=== PATIENT | female | born 1990 | race Caucasian/White ===

== ENCOUNTER 2020-08-12 11:17 | Outpatient (REF) | payer MEDICAID, SELFPAY | END 2020-08-12 11:18 | disposition home or self-care (01) | LOC: HO.LAB 11:17 | PROVIDERS: Visit Provider Internal Medicine | DX: Z20.822 Contact with and (suspected) exposure to COVID-19 (principal) | CPT/HCPCS: 36415; C9803; U0003; U0005 ==

== ENCOUNTER 2021-04-06 09:42 | Outpatient (REF) | payer MEDICAID, SELFPAY | END 2021-04-06 09:43 | disposition home or self-care (01) | LOC: HO.LAB 09:42 | PROVIDERS: Visit Provider Internal Medicine | DX: Z20.822 Contact with and (suspected) exposure to COVID-19 (principal) | CPT/HCPCS: C9803; U0003; U0005 ==

== ENCOUNTER 2021-10-27 16:31 | Emergency (ER) | payer MEDICAID, SELFPAY ==
--- NOTE | ~2021-10-27 | CT_ITS ---
EXAMINATION: CT SOFT TISSUE NECK WITH CONTRAST CLINICAL INFORMATION: Sore throat rule out abscess COMPARISON: None TECHNIQUE: Following the intravenous administration of 6 mL of Omnipaque 350 intravenous contrast, helical imaging was performed in the axial plane with generation of coronal and sagittal reformatted images. This CT examination was performed using dose optimization techniques as appropriate, variously including the following: *Automated exposure control *Adjustment of mA and/or kV according to patient size (this includes techniques or standardized protocols for targeted exams where dose is matched to indication/reason for exam; i.e. extremities or head) *Use of iterative reconstruction technique DLP: 478 mGy-cm FINDINGS: There is marked cervical adenopathy is identified with lymph nodes measured more than 2 cm long. The parotid glands are homogeneous in attenuation. The submandibular glands are normal. No contour abnormality or pathologic enhancement is seen within the oral cavity or pharyngeal mucosal space. The laryngeal structures are deviated to the left by soft tissue prominence at the right tonsillar area. The parapharyngeal fat is obliterated. The carotid sheath vasculature opacify normally. There there bilateral peritonsillar abscesses right measured 1.5 x 1.4 x 2.4 cm and left significantly smaller and difficult to measure, in sagittal direction measured 0.9 cm. No retropharyngeal fluid collection is seen. The thyroid gland is normal. The superior mediastinum is unremarkable. The lung apices are clear. The mastoid air cells and visualized portions of the paranasal sinuses are well-aerated. The temporomandibular joints are normal. No periapical disease is identified. No osseous abnormalities are seen. The imaged portions of the brain parenchyma are unremarkable. CT/CT soft tissue neck w con IMPRESSION: Bilateral, right more than left paratonsillar abscess is is deviation of the larynx to the left and massive neck lymphadenopathy
[2021-10-27 16:37] VITALS: BP 121/76; PULSE 99; O2SAT 98
[2021-10-27 17:59] VITALS: BP 133/89; PULSE 100; RESP 20; TEMP 38.3; O2SAT 99; BMI 27.4
--- NOTE | 2021-10-27 18:08 | ED_ITS ---
HPI - General Adult General Chief complaint: General Medical Stated complaint: SORE THROAT Time Seen by Provider: 10/27/21 18:06 Source: patient Mode of arrival: EMS Limitations: no limitations History of Present Illness HPI narrative: This is a 31-year-old female no significant medical history presenting to the emergency department with sore throat, shortness of breath, difficulty swallowing, difficulty controlling secretions x3 days progressively worsening. Patient speaking in short sentences in telling me that she had had a sore throat like this for a while. She tells me that last time she had a sore throat like this she was hospitalized with IV antibiotics. She also reports associated neck pain. Patient tells me she has been having subjective fevers and chills. She has not been eating or drinking much over the past 3 days. No known sick contacts. She denies nausea, vomiting, chest pain, abdominal pain, vision changes. Onset (ago): day(s) (3) Location: mouth (Throat ) Radiation: non-radiation Severity: severe Severity scale (1-10): 10 Quality: burning Pain Consistency: constant Relieving factors: none Exacerbating factors: other (swallowing, eating ) Associated symptoms: denies other symptoms Treatments prior to arrival: none Related Data Allergies Allergy/AdvReac Type Severity Reaction Status Date / Time No Known Allergies Allergy Unverified 07/25/21 14:47 Review of Systems Review of Systems: Constitutional : No Weight loss, + Fever, + Chills, No Fatigue, No Malaise ENT/Mouth : + sore throat, No Rhinorrhea Eyes: No Eye Pain, No Swelling, No Redness Cardiovascular : No Chest Pain, No SOB, No Dyspnea on Exertion, No Orthopnea, No Edema, No Palpitations Respiratory : No Cough, No Sputum, No Wheezing Gastrointestinal : No Nausea, No Vomiting, No Diarrhea, No Constipation, No abdominal Pain, No Hematochezia, No Melena Genitourinary : No Dysuria, No Urinary Frequency, No Hematuria, Musculoskeletal : No joint pain, No Myalgias, No Joint Swelling Skin : No Skin Lesions, No rash Neuro : No Weakness, No Numbness, No Dizziness, No Headache Psych : No Anxiety/Panic, No Depression All other systems reviewed and are negative Yes all other systems are reviewed and are negative PMFSH Past Medical History Attestation statement: The following information was validated with the patient. Source: old records reviewed and nursing notes reviewed Social History Social History Advance Directives: No Advance Directives Information Provided: No Patient : No Physical Exam ED Vital Signs: Vital Signs - 24 hr 10/27/21 17:59 10/27/21 18:31 10/27/21 21:09 Temperature 101 F H 99.7 F 98.4 F Pulse Rate 100 102 H 96 Respiratory Rate 20 21 H 16 Blood Pressure 133/89 119/70 122/79 Pulse Oximetry 99 97 97 BMI result Body Mass Index 27.4 Patient noted to be febrile. And tachycardic. Appearance: Alert.? Oriented X3.? No acute distress.?+ Patient speaking with muffled voice. Trouble controlling secretions. Head: Normocephalic, atraumatic, no step-offs or deformities Eyes: Pupils equal, round and reactive to light.? ENT: + Bilateral tonsils extremely erythematous, edematous without exudate, difficult to visualize the posterior pharynx. Bulls neck Neck: Normal inspection.? Neck supple.? CVS: Normal heart rate and rhythm.? Pulses normal.? Respiratory: No respiratory distress.? Breath sounds normal.? Abdomen: Soft and nontender.? Skin: Skin warm and dry.? Normal skin color.? Normal skin turgor.? Extremities: No lower extremity edema.? No calf ttp. 5/5 strength to bilateral upper and lower extremities Back: No midline tenderness, no C-spine tenderness, full range of motion, no CVA tenderness bilaterally Neuro: Oriented X 3.? No motor deficit.? No sensory deficit. CN 2-12 intact Course Reevaluation(s) Reevaluation #1: Patient noted to have a leukocytosis, consistent with pharyngitis. No acute electrolyte abnormalities. CT shows bilateral right more Than left peritonsillar abscess with deviation of the larynx to the left and massive neck lymphadenopathy. Patient continues to spit up her saliva however she saturating well on room air. As we do not have ENT patient will require higher level of care. Will call [facility] for transfer. Time: 21:08 Reevaluation #2: ENT at [facility] will not take transfer at this time will try ED. Time: 21:23 Reevaluation #3: Patient will be transfered to [facility] ED to service of . Time: 21:26 Medical Decision Making MDM Narrative Medical decision making narrative: 180 31 yo f presents w/ sore throat prog worsening X2 days. Reports difficulty with swallowing. Has had a hard time eating and drinking lately. Upon physical examination patient has extremely erythematous and edematous bilateral tonsils, difficult to visualize posterior pharynx. Mallampati score of 3 or 4. Patient having issues controlling secretions, speaking with a muffled voice. Regular rate fast rhythm likely sinus tachycardia. Lungs clear. Abdomen soft nontender nondistended. Neuro nonfocal. Patient is tachycardic and febrile however likely secondary to strep throat. I do not suspect sepsis at this time. Likely pharyngitis. Will rule out peritonsillar abscess. At this time patient will be given dexamethasone and clindamycin as well as Tylenol as she is febrile. I will obtain blood cultures and a lactic as well. Medical Records Medical records reviewed: Yes I reviewed the patient's medical records. Lab Data Lab results reviewed: Yes I reviewed the patient's lab results. Result diagrams: 10/27/21 18:29 10/27/21 18:54 Labs: Lab Results 10/27/21 10/27/21 10/27/21 Range/Units 18:29 18:29 18:33 WBC 14.6 H (4.8-10.8) X10*3/uL RBC 4.03 L (4.20-5.50) X10*6/uL Hgb 10.7 L (12.0-16.0) g/dl Hct 32.4 L (37.0-47.0) % MCV 80.4 (80.0-98.0) fL MCH 26.6 L (27.0-33.0) pg MCHC 33.0 (31.0-35.0) g/dl RDW 14.9 (11.0-16.0) % Plt Count 380 (160-400) X10*3/uL MPV 11.0 (9.4-12.3) fL Immature Gran % (Auto) 0.5 H (0.0-0.4) % Neut % (Auto) 75.8 H (45-73) % Lymph % (Auto) 16.2 L (20-40) % [place] % (Auto) 6.8 (2-11) % Eos % (Auto) 0.5 (0-4) % Baso % (Auto) 0.2 (0-2) % Lymph # (Auto) 2.4 (1.2-4.9) X10*3/uL [place] # (Auto) 1.0 (0.1-1.2) X10*3/uL Eos # (Auto) 0.1 (0.0-0.4) X10*3/uL Baso # (Auto) 0.0 (0.0-0.2) X10*3/uL Abs Immat Gran (auto) 0.08 H (0.00-0.03) X10*3/uL Absolute Neuts (auto) 11.1 H (2.0-8.3) x10*3/uL Absolute Nucleated RBC 0.000 (0.0-0.012) X10*3/uL Nucleated RBC % (auto) 0.0 (0.0-0.2) /100WBC Sodium (135-145) mmol/L Potassium (3.3-5.1) mmol/L Chloride (96-108) mmol/L Carbon Dioxide (22-29) mmol/L Anion Gap (12-20) BUN (9-16) mg/dL Creatinine (0.5-1.4) mg/dL Estim Creat Clear Calc Estimated GFR Random Glucose (60-115) mg/dL Lactic Acid 0.9 (0.5-2.0) mmol/L Calcium (8.4-10.2) mg/dL Total Bilirubin (0.0-1.0) mg/dL AST (5-31) U/L ALT (0-31) U/L Alkaline Phosphatase (39-117) U/L Total Protein (6.5-8.0) g/dL Albumin (3.5-5.0) g/dL COVID-19 (MP) Negative (Negative) COVID-19 Clin Com See Note Influenza Type A (CARLO) (Negative) Influenza Type B (CARLO) (Negative) Influenza A & B Note S. pyogenes GrpA CARLO (Negative) 10/27/21 10/27/21 10/27/21 Range/Units 18:54 18:55 19:54 WBC (4.8-10.8) X10*3/uL RBC (4.20-5.50) X10*6/uL Hgb (12.0-16.0) g/dl Hct (37.0-47.0) % MCV (80.0-98.0) fL MCH (27.0-33.0) pg MCHC (31.0-35.0) g/dl RDW (11.0-16.0) % Plt Count (160-400) X10*3/uL MPV (9.4-12.3) fL Immature Gran % (Auto) (0.0-0.4) % Neut % (Auto) (45-73) % Lymph % (Auto) (20-40) % [place] % (Auto) (2-11) % Eos % (Auto) (0-4) % Baso % (Auto) (0-2) % Lymph # (Auto) (1.2-4.9) X10*3/uL [place] # (Auto) (0.1-1.2) X10*3/uL Eos # (Auto) (0.0-0.4) X10*3/uL Baso # (Auto) (0.0-0.2) X10*3/uL Abs Immat Gran (auto) (0.00-0.03) X10*3/uL Absolute Neuts (auto) (2.0-8.3) x10*3/uL Absolute Nucleated RBC (0.0-0.012) X10*3/uL Nucleated RBC % (auto) (0.0-0.2) /100WBC Sodium 138 (135-145) mmol/L Potassium 3.5 (3.3-5.1) mmol/L Chloride 103 (96-108) mmol/L Carbon Dioxide 25 (22-29) mmol/L Anion Gap 14 (12-20) BUN 11 (9-16) mg/dL Creatinine 0.72 (0.5-1.4) mg/dL Estim Creat Clear Calc 103.3 Estimated GFR > 60 Random Glucose 95 (60-115) mg/dL Lactic Acid (0.5-2.0) mmol/L Calcium 8.9 (8.4-10.2) mg/dL Total Bilirubin 0.6 (0.0-1.0) mg/dL AST 15 (5-31) U/L ALT 12 (0-31) U/L Alkaline Phosphatase 87 (39-117) U/L Total Protein 7.8 (6.5-8.0) g/dL Albumin 3.9 (3.5-5.0) g/dL COVID-19 (MP) (Negative) COVID-19 Clin Com Influenza Type A (CARLO) Negative (Negative) Influenza Type B (CARLO) Negative (Negative) Influenza A & B Note See Note S. pyogenes GrpA CARLO Negative (Negative) Critical Care Time Critical Care Time Critical Care Time: No Discharge Plan Discharge Clinical Impression: Peritonsillar abscess, Shortness of breath, Sore throat, Fever Patient Disposition: [facility] Transfer Details: Transfer to [facility] ED Dr. Soler
[2021-10-27 18:31] VITALS: BP 119/70; PULSE 102; RESP 21; TEMP 37.6; O2SAT 97
[2021-10-27 18:35] LABS: MANUAL DIFF FLAG NO
[2021-10-27 18:50] LABS: Basophils Percent Auto 0.2 % (0-2); Eosinophils Absolute Auto 0.1 X10*3/uL (0.0-0.4); Eosinophils Percent Auto 0.5 % (0-4); Hematocrit 32.4 % (37.0-47.0); Hemoglobin 10.7 g/dl (12.0-16.0); Imm Gran Abs Auto 0.08 X10*3/uL (0.00-0.03); Imm Gran Pct Auto 0.5 % (0.0-0.4); Lymphocytes Absolute Auto 2.4 X10*3/uL (1.2-4.9); Lymphocytes Percent Auto 16.2 % (20-40); Mean Corpuscular Hemoglobin 26.6 pg (27.0-33.0); Mean Corpuscular Volume 80.4 fL (80.0-98.0); Monocytes Percent Auto 6.8 % (2-11); Neutrophils Absolute Auto 11.1 x10*3/uL (2.0-8.3); Neutrophils Percent Auto 75.8 % (45-73); Platelet Count 380 X10*3/uL (160-400); Red Blood Count 4.03 X10*6/uL (4.20-5.50); Red Cell Distribution Width 14.9 % (11.0-16.0); White Blood Count 14.6 X10*3/uL (4.8-10.8)
[2021-10-27 18:52] LABS: Lactic Acid 0.9 mmol/L (0.5-2.0)
[2021-10-27 18:53] LABS: COVID-19 Test Negative (Negative)
[2021-10-27 19:17] LABS: IDNOW Serial# 16C4AD1C; Influenza A Negative (Negative); Influenza B2 Negative (Negative)
[2021-10-27 19:20] LABS: Alanine Aminotransferase 12 U/L (0-31); Albumin Level 3.9 g/dL (3.5-5.0); Alkaline Phosphatase 87 U/L (39-117); Anion Gap 14 (12-20); Aspartate Amino Transferase 15 U/L (5-31); Bilirubin Total 0.6 mg/dL (0.0-1.0); Blood Urea Nitrogen 11 mg/dL (9-16); Calcium 8.9 mg/dL (8.4-10.2); Carbon Dioxide 25 mmol/L (22-29); Chloride 103 mmol/L (96-108); Creatinine Clr Calc Pharmacy 103.3; Estimated Glomerular Filt Rate > 60; Glucose Random 95 mg/dL (60-115); Potassium 3.5 mmol/L (3.3-5.1); Sodium 138 mmol/L (135-145); Total Protein 7.8 g/dL (6.5-8.0)
[2021-10-27] MEDS: Clindamycin Phosphate/D5W 600 MG/50 ML PIGGYBACK 100 MG IV (19:59)
[2021-10-27] MEDS: 0.9 % Sodium Chloride 1,000 ML 999 ML IV (19:59)
[2021-10-27] MEDS: dexAMETHasone sod phosphate 10 MG/ML VIAL IVPUSH (20:00)
[2021-10-27] MEDS: Acetaminophen 325 MG TABLET 975 MG PO (20:00)
[2021-10-27 20:06] LABS: Strep A Nucleic Acid Negative (Negative)
[2021-10-27] MEDS: iohexoL 350 MG/ML 100 ML INFUS..BTL IV (20:42)
--- NOTE | 2021-10-27 21:07 | PC.NURSE ---
call out to [facility] transfer line @ [phone]
[2021-10-27 21:09] VITALS: BP 122/79; PULSE 96; RESP 16; TEMP 36.9; O2SAT 97
[2021-10-27 22:06] LABS: Monotest Negative (Negative)
== END 2021-10-27 21:45 | disposition short-term general hospital (02) ==
PROVIDERS: Physician Assistant; Emergency Provider Internal Medicine
DX: J36 Peritonsillar abscess (principal); J02.9 Acute pharyngitis, unspecified; R50.9 Fever, unspecified; R06.02 Shortness of breath; Z20.822 Contact with and (suspected) exposure to COVID-19
CPT/HCPCS: 36415; 70491; 80053; 83605; 85025; 86308; 87040; 87502; 87635; 87651; 96361; 96365; 96375; 99285; J1100; Q9967

== ENCOUNTER 2023-03-14 12:20 | Emergency (ER) | payer MEDICAID, SELFPAY ==
--- NOTE | ~2023-03-14 | CT_ITS ---
EXAMINATION: CT HEAD WITHOUT CONTRAST CLINICAL INFORMATION: Fall, head trauma COMPARISON: None available. TECHNIQUE: Contiguous axial imaging was performed from the skull base to vertex without intravenous administration of contrast. This CT examination was performed using dose optimization techniques as appropriate, variously including the following: *Automated exposure control *Adjustment of mA and/or kV according to patient size (this includes techniques or standardized protocols for targeted exams where dose is matched to indication/reason for exam; i.e. extremities or head) *Use of iterative reconstruction technique DLP: 547 mGy-cm FINDINGS: The ventricles and sulci are normal in size and configuration. No acute hemorrhage, mass effect or shift is evident. Beckman-white differentiation is maintained. In the posterior fossa, the brainstem, cerebellum and fourth ventricle image normally. The orbits and calvarium are intact. The paranasal sinuses and mastoid air cells are well pneumatized and clear. CT/CT head/brain wo IV con IMPRESSION: 1. Unremarkable noncontrast brain CT. No acute hemorrhage, mass effect or shift.
--- NOTE | ~2023-03-14 | XR_ITS ---
EXAMINATION: XR SHOULDER, LEFT CLINICAL INFORMATION: Shoulder pain, fall COMPARISON: None available. TECHNIQUE: AP external rotation, Grashey, scapular Y, views of the left shoulder. FINDINGS: The bones and soft tissues are normal. No fracture. Glenohumeral and acromioclavicular alignment is anatomic with normal joint space. No abnormal soft tissue calcifications. XR/XR shoulder LT min 2V IMPRESSION: Normal left shoulder.
[2023-03-14 12:31] VITALS: BP 137/85; PULSE 73; RESP 16; TEMP 36.8; O2SAT 98; BMI 27.0
--- NOTE | 2023-03-14 12:33 | ECG_ITS ---
Test Reason : pain Blood Pressure : / mmHG Vent. Rate : 060 BPM Atrial Rate : 060 BPM P-R Int : 168 ms QRS Dur : 076 ms QT Int : 392 ms P-R-T Axes : 045 054 041 degrees QTc Int : 392 ms Normal sinus rhythm with sinus arrhythmia Normal ECG When compared with ECG of 16-DEC-2011 23:01, No significant change was found Referred By: Deniz Newberry Electronically Signed By:CHIQUITA NORTON
--- NOTE | 2023-03-14 12:34 | ED_ITS ---
HPI - General Adult General Chief complaint: Seizure Stated complaint: Seizure Sent By [facility] Time Seen by Provider: 03/14/23 14:02 Source: patient Mode of arrival: ambulatory Limitations: no limitations History of Present Illness HPI narrative: Patientwith history of epilepsy since age 16 never been treated, had EEG at that time which was nondiagnostic but never followed up with any neurologist after that patient has been having seizures off and on last seizure was 6 years ago the last night around midnight patient was in the kitchen felt funny and next thing was noted that she was on the ground her 8 year son watched the seizure patient was confused complaining of pain in the left scapular area. No history of sleep deprivation no intake of Wellbutrin or tramadol or any drugs no current head injury Related Data Previous Rx's Medication Instructions Recorded levetiracetam 500 mg tablet 500 mg PO BID #180 tabs 03/14/23 (Keppra) Allergies Allergy/AdvReac Type Severity Reaction Status Date / Time No Known Allergies Allergy Unverified 03/14/23 12:35 Review of Systems 2 Review of Systems: Yes all other systems are reviewed and are negative [facility] Social History Social History Alcohol intake: never Smoked in Last 30 Days: No Use of substances other than those prescribed or required for medical reasons: No Advance Directives: No Physical Exam ED Vital Signs: Vital Signs - 24 hr 03/14/23 12:31 Temperature 98.3 F Pulse Rate 73 Respiratory Rate 16 Blood Pressure 137/85 Pulse Oximetry 98 Oxygen Delivery Method Room Air BMI result Body Mass Index 27.0 Appearance: Alert. Oriented X3. No acute distress. Eyes: PERRLA, No Nystagmus ENT: Pharynx normal. Oral Mucosa moist no tongue bite Neck: Normal inspection. Neck supple. CVS: Normal heart rate and rhythm. Pulses normal. Respiratory: No respiratory distress. Equal air entry bilateral, no wheezing/rales/rhonchi Abdomen: Soft and nontender. Bowel sounds are present, no mass palpable, no CVA tenderness Skin: Skin warm and dry. Normal skin color. Normal skin turgor. Extremities: No lower extremity edema. No calf tenderness soft tissue tenderness left scapular area good range of left shoulder Neuro: Oriented X 3. No motor deficit. No sensory deficit.No cerebellar signs , cranial nerves II-XII intact Course Course Course Narrative: RME- 32 year old female presents for evaluation of a seizure. She reports an unwitnessed seizure last night around midnight. She reports she was standing in the bathroom and she remembers waking up on the floor. She reports feeling weak with a headache currently. No neuro deficits. She reports history of seizures with the most recent being 6 months ago. She is not on any antiepileptic medications. Plan for labs and a head CT Medications Administered Discontinued Medications Generic Name Dose Route Start Last Admin Trade Name Freq PRN Reason Stop Dose Admin Levetiracetam 500 mg 03/14/23 14:36 03/14/23 14:51 Levetiracetam 500 Mg Tablet PO 03/14/23 14:37 500 mg ONCE ONE Administration Medical Decision Making Medical Decision Making [facility] Narrative: Patient with history of epilepsy with aura and post ictal confusion will start patient on Keppra advised to follow with neurologist Differential Diagnosis Differential Diagnoses: The differential diagnosis associated with the presentation includes Pseudo epilepsy/epilepsy Lab Data [facility] Lab Attestation statement: I reviewed the patient's lab results. 03/14/23 12:40 03/14/23 12:40 Labs: Lab Results 03/14/23 Range/Units 12:40 WBC 6.3 (4.8-10.8) X10*3/uL RBC 3.93 L (4.20-5.50) X10*6/uL Hgb 11.5 L (12.0-16.0) g/dl Hct 34.7 L (37.0-47.0) % MCV 88.3 (80.0-98.0) fL MCH 29.3 (27.0-33.0) pg MCHC 33.1 (31.0-35.0) g/dl RDW 13.8 (11.0-16.0) % Plt Count 322 (160-400) X10*3/uL MPV 10.3 (9.4-12.3) fL Immature Gran % (Auto) 0.3 (0.0-0.4) % Neut % (Auto) 61.0 (45-73) % Lymph % (Auto) 29.5 (20-40) % [place] % (Auto) 7.8 (2-11) % Eos % (Auto) 1.1 (0-4) % Baso % (Auto) 0.3 (0-2) % Lymph # (Auto) 1.9 (1.2-4.9) X10*3/uL [place] # (Auto) 0.5 (0.1-1.2) X10*3/uL Eos # (Auto) 0.1 (0.0-0.4) X10*3/uL Baso # (Auto) 0.0 (0.0-0.2) X10*3/uL Abs Immat Gran (auto) 0.02 (0.00-0.03) X10*3/uL Absolute Neuts (auto) 3.8 (2.0-8.3) x10*3/uL Absolute Nucleated RBC 0.000 (0.0-0.012) X10*3/uL Nucleated RBC % (auto) 0.0 (0.0-0.2) /100WBC Sodium 139 (135-145) mmol/L Potassium 4.3 D (3.3-5.1) mmol/L Chloride 110 H (96-108) mmol/L Carbon Dioxide 23 (22-29) mmol/L Anion Gap 10 L (12-20) BUN 10 (9-16) mg/dL Creatinine 0.69 (0.5-1.4) mg/dL Estim Creat Clear Calc 106.0 Estimated GFR > 60 Random Glucose 97 (60-115) mg/dL Lactic Acid 0.8 (0.5-2.0) mmol/L Calcium 9.0 (8.4-10.2) mg/dL Magnesium 2.2 (1.6-2.6) mg/dL Total Bilirubin 0.2 (0.0-1.0) mg/dL AST 18 (5-31) U/L ALT 10 (0-31) U/L Alkaline Phosphatase 67 (39-117) U/L Total Creatine Kinase 125 (26-140) U/L Total Protein 7.7 (6.5-8.0) g/dL Albumin 3.9 (3.5-5.0) g/dL Lipase 19 (8-78) U/L Radiology Impression Discussion of test interpretation with radiology: I have reviewed the radiologist's reading. Radiologist Impression: Negative head CT Discharge Plan Discharge Clinical Impression: Epileptic seizure Patient Disposition: Home, Self-Care Instructions: Epilepsy (ED) Additional Instructions: Care and cautions as advised Start taking seizure medication as prescribed Follow-up with neurologist for further evaluation Prescriptions: New levetiracetam [Keppra] 500 mg tablet 500 mg PO BID Qty: 180 2RF Referrals: Xavi Caceres MD [Physician] - 2 weeks Stand Alone Forms: Work/School Release
[2023-03-14 12:53] LABS: MANUAL DIFF FLAG NO
[2023-03-14 12:58] LABS: Basophils Percent Auto 0.3 % (0-2); Eosinophils Absolute Auto 0.1 X10*3/uL (0.0-0.4); Eosinophils Percent Auto 1.1 % (0-4); Hematocrit 34.7 % (37.0-47.0); Hemoglobin 11.5 g/dl (12.0-16.0); Imm Gran Abs Auto 0.02 X10*3/uL (0.00-0.03); Imm Gran Pct Auto 0.3 % (0.0-0.4); Lymphocytes Absolute Auto 1.9 X10*3/uL (1.2-4.9); Lymphocytes Percent Auto 29.5 % (20-40); Mean Corpuscular HGB Conc 33.1 g/dl (31.0-35.0); Mean Corpuscular Hemoglobin 29.3 pg (27.0-33.0); Mean Corpuscular Volume 88.3 fL (80.0-98.0); Mean Platelet Volume 10.3 fL (9.4-12.3); Monocytes Absolute Auto 0.5 X10*3/uL (0.1-1.2); Monocytes Percent Auto 7.8 % (2-11); Neutrophils Absolute Auto 3.8 x10*3/uL (2.0-8.3); Platelet Count 322 X10*3/uL (160-400); Red Blood Count 3.93 X10*6/uL (4.20-5.50); Red Cell Distribution Width 13.8 % (11.0-16.0); White Blood Count 6.3 X10*3/uL (4.8-10.8)
[2023-03-14 13:04] LABS: Lactic Acid 0.8 mmol/L (0.5-2.0)
[2023-03-14 13:11] LABS: Alanine Aminotransferase 10 U/L (0-31); Albumin Level 3.9 g/dL (3.5-5.0); Alkaline Phosphatase 67 U/L (39-117); Anion Gap 10 (12-20); Aspartate Amino Transferase 18 U/L (5-31); Bilirubin Total 0.2 mg/dL (0.0-1.0); Blood Urea Nitrogen 10 mg/dL (9-16); Carbon Dioxide 23 mmol/L (22-29); Chloride 110 mmol/L (96-108); Estimated Glomerular Filt Rate > 60; Glucose Random 97 mg/dL (60-115); Lipase 19 U/L (8-78); Magnesium 2.2 mg/dL (1.6-2.6); Potassium 4.3 mmol/L (3.3-5.1); Sodium 139 mmol/L (135-145); Total Protein 7.7 g/dL (6.5-8.0)
[2023-03-14] MEDS: levETIRAcetam 500 MG TABLET PO (14:51)
== END 2023-03-14 15:15 | disposition home or self-care (01) ==
PROVIDERS: Physician Assistant; Emergency Provider Internal Medicine
DX: G40.909 Epilepsy, unspecified, not intractable, without status epilepticus (principal); M25.512 Pain in left shoulder; R07.89 Other chest pain; Z79.899 Other long term (current) drug therapy
CPT/HCPCS: 36415; 70450; 73030; 80053; 82550; 83605; 83690; 83735; 85025; 93005; 99284

== ENCOUNTER 2023-04-10 09:21 | Outpatient (REF) | payer MEDICAID, SELFPAY | END 2023-04-10 09:22 | disposition home or self-care (01) | LOC: HO.LAB 09:21 | PROVIDERS: Visit Provider Psychiatry & Neurology Neurology | DX: D64.9 Anemia, unspecified (principal) | CPT/HCPCS: 36415; 83540 ==

== ENCOUNTER 2023-07-13 09:38 | Outpatient (REF) | payer MEDICAID, SELFPAY ==
[2023-07-13 11:47] LABS: MANUAL DIFF FLAG NO
[2023-07-13 12:02] LABS: Basophils Percent Auto 0.7 % (0-2); Eosinophils Absolute Auto 0.1 X10*3/uL (0.0-0.4); Eosinophils Percent Auto 1.1 % (0-4); Hematocrit 34.6 % (37.0-47.0); Hemoglobin 11.4 g/dl (12.0-16.0); Imm Gran Abs Auto 0.02 X10*3/uL (0.00-0.03); Imm Gran Pct Auto 0.4 % (0.0-0.4); Lymphocytes Absolute Auto 1.8 X10*3/uL (1.2-4.9); Lymphocytes Percent Auto 39.3 % (20-40); Mean Corpuscular HGB Conc 32.9 g/dl (31.0-35.0); Mean Corpuscular Hemoglobin 29.5 pg (27.0-33.0); Mean Corpuscular Volume 89.6 fL (80.0-98.0); Mean Platelet Volume 11.5 fL (9.4-12.3); Monocytes Absolute Auto 0.4 X10*3/uL (0.1-1.2); Monocytes Percent Auto 8.4 % (2-11); Neutrophils Absolute Auto 2.3 x10*3/uL (2.0-8.3); Neutrophils Percent Auto 50.1 % (45-73); Platelet Count 289 X10*3/uL (160-400); Red Blood Count 3.86 X10*6/uL (4.20-5.50); White Blood Count 4.5 X10*3/uL (4.8-10.8)
[2023-07-13 12:31] LABS: HBS Num1 139.78 mIU/mL (0-7.99); HBc Num1 0.11 S/CO (0.00-0.79); HBsAGNum1 0.27 S/CO (0.00-0.99); HIV AB/AG Nonreactive (Nonreactive); HIV Num 1 0.05 S/CO (0.00-0.99); Hepatitis B Core Antibody Nonreactive (Nonreactive); Hepatitis B Surface Antigen Negative (Negative); ~HepC Num1 0.09 S/CO (0.00-0.79); ~Hepatitis B Surface Antibody REACTIVE (Nonreactive); ~Hepatitis C Antibody Nonreactive (Nonreactive)
[2023-07-13 12:32] LABS: Alanine Aminotransferase 12 U/L (0-31); Alkaline Phosphatase 70 U/L (39-117); Anion Gap 10 (12-20); Aspartate Amino Transferase 17 U/L (5-31); Bilirubin Direct 0.2 mg/dL (0.0-0.5); Bilirubin Total 0.4 mg/dL (0.0-1.0); Blood Urea Nitrogen 10 mg/dL (9-16); Carbon Dioxide 25 mmol/L (22-29); Chloride 109 mmol/L (96-108); Cholesterol 140 mg/dL (<200); Estimated Glomerular Filt Rate > 60; Glucose Random 101 mg/dL (60-115); HDL Cholesterol 53 mg/dL (>40); Iron 43 mcg/dL (30-160); LDL Cholesterol Calculated 81 mg/dL (<100); Percent Iron Saturation 13 % (15-50); Potassium 4.5 mmol/L (3.3-5.1); Sodium 139 mmol/L (135-145); Total Iron Binding Capacity 338 mcg/dL (228-428); Total Protein 7.6 g/dL (6.5-8.0); Triglycerides 30 mg/dL (<150); Unsaturated Iron Binding 295 ug/dL
[2023-07-13 12:37] LABS: Ferritin 27 ng/mL (10-122)
[2023-07-16 11:49] LABS: RPR Rapid Plasma Reagin NON-REACTIVE (NON-REACTIVE)
== END 2023-07-13 09:39 | disposition home or self-care (01) ==
LOC: HO.HHCL 09:38
PROVIDERS: Visit Provider Nurse Practitioner
DX: D64.9 Anemia, unspecified (principal); R56.9 Unspecified convulsions; E66.3 Overweight; Z11.3 Encounter for screening for infections with a predominantly sexual mode of transmission
CPT/HCPCS: 36415; 80053; 80061; 82248; 82728; 83540; 85025; 86592; 86704; 86706; 86803; 87340; 87389

== ENCOUNTER 2024-12-30 | Outpatient (REF) | payer MEDICAID, SELFPAY | END 2024-12-30 00:01 | disposition home or self-care (01) | LOC: HO.LNP | PROVIDERS: Visit Provider Advanced Practice Midwife | DX: Z12.4 Encounter for screening for malignant neoplasm of cervix (principal); Z11.51 Encounter for screening for human papillomavirus (HPV) | CPT/HCPCS: 87626; 88175 ==